=== PATIENT | male | born 1995 | race Caucasian/White ===

== ENCOUNTER 2023-05-21 08:20 | Emergency (ER) | payer BC, OTHER ==
[~2023-05-21] VITALS: Ht 167.6 cm; Wt 99.8 kg
[2023-05-21 08:30] VITALS: BP_SYST 146
[2023-05-21] MEDS ORDERED: IBUPROFEN 600 MG TABLET PO ONE (09:00)
[2023-05-21] MEDS ORDERED: LIDOCAINE 1% 10 MG/ML, 20 ML MDV INJ ONE (09:00)
[2023-05-21] MEDS ORDERED: DIPHTH,PERTUSS(ACELL),TET VAC 0.5 ML VIAL (Tdap) I.M. ONE (09:00)
[2023-05-21 10:02] VITALS: BP_SYST 146
== END 2023-05-21 10:00 | disposition home or self-care (01) ==
LOC: SED 08:20
DX: S61.217A Laceration without foreign body of left little finger without damage to nail, initial encounter (principal); Z79.899 Other long term (current) drug therapy; W26.0XXA Contact with knife, initial encounter; Y93.89 Activity, other specified; Y92.89 Other specified places as the place of occurrence of the external cause; Y99.8 Other external cause status
CPT/HCPCS: 99283; 90715; 90471; 12001; J2001